=== PATIENT | male | born 1980 | race Hispanic/Latino ===

== ENCOUNTER 2018-04-21 09:27 | Inpatient (IN) | payer BC ==
[2018-04-21] VITALS (9 sets, daily range): BP systolic 102–131; BP diastolic 51–85
[~2018-04-21] VITALS: Ht 177.8 cm; Wt 98.9 kg
[2018-04-21 10:12] LABS: BASOPHILS % (AUTO) 0.8 % (0.0-5.0); EOSINOPHILS % (AUTO) 2.4 % (0.0-8.0); HEMATOCRIT 48.7 % (42-54); LYMPHOCYTES % (AUTO) 17.7 % (21.0-51.0); MEAN CORPUSCULAR HGB CONC 34.3 g/dL (32.0-36.0); MEAN CORPUSCULAR VOLUME 87.5 fL (79-99); MONOCYTES % (AUTO) 7.3 % (3.0-13.0); NEUTROPHILS % (AUTO) 71.8 % (40.0-77.0); PLATELET COUNT (AUTO) 233 K/uL (130-400); RED BLOOD CELL COUNT(AUTO) 5.57 MIL/uL (4.50-6.20); RED CELL DISTRIBUTION WIDTH 13.9 % (11.0-15.5); WHITE BLOOD COUNT (AUTO) 7.8 K/uL (4.8-10.8)
[2018-04-21 10:17] LABS: POTASSIUM 4.1 mmol/L (3.5-5.1)
[2018-04-21 10:18] LABS: INR 0.97 (0.85-1.15); PARTIAL THROMBOPLASTIN TIME 28.9 SEC (26.3-35.5); PROTHROMBIN TIME 10.2 SEC (9.6-11.6)
[2018-04-21 10:23] LABS: ALBUMIN 3.9 g/dL (3.5-5.0); BILIRUBIN,TOTAL 0.6 mg/dL (0.2-1.0); TOTAL PROTEIN, SERUM 7.7 g/dL (6.0-8.3)
[2018-04-21] MEDS ORDERED: SODIUM CHLORIDE 0.9% 1000ML 1,000 ML IV SCH ×2 (10:45→16:23)
[2018-04-21 11:32] LABS: TROPONIN I 3.25 ng/mL (0.00-0.06)
[2018-04-21] MEDS ORDERED: NITROGLYCERIN 1GM/1 INCH PACKET TD SCH (14:15)
[2018-04-21] MEDS ORDERED: LIDOCAINE HCL 2% 20ML ONE (14:37)
[2018-04-21] MEDS ORDERED: NITROGLYCERIN 5 MG/ML 10 ML VIAL IV ONE (14:37)
[2018-04-21] MEDS ORDERED: IOHEXOL-350 50ML VIAL IV ONE ×2 (14:37→15:47)
[2018-04-21] MEDS ORDERED: IOHEXOL 350 MG/ML 100ML INFUS..BTL IV ONE (14:37)
[2018-04-21] MEDS ORDERED: BIVALIRUDIN 250 MG/VIAL IV ONE (14:37)
[2018-04-21] MEDS ORDERED: MIDAZOLAM HCL 1 MG/ML 2ML VIAL ONE (15:35)
[2018-04-21] MEDS ORDERED: ATOR10 PO (16:44)
[2018-04-21] MEDS ORDERED: AEC81 PO (16:44)
[2018-04-21] MEDS ORDERED: PENI500T2 PO (16:44)
[2018-04-21] MEDS ORDERED: METO-391 PO (16:44)
[2018-04-21 17:39] LABS: TROPONIN I 2.76 ng/mL (0.00-0.06)
[2018-04-21] MEDS: PENICILLIN V POTASSIUM 500 MG TABLET PO SCH ×3 (17:41→19:37)
[2018-04-21] MEDS ORDERED: ATORVASTATIN CALCIUM 20 MG TABLET PO SCH (21:00)
[2018-04-21] MEDS ORDERED: METOPROLOL TARTRATE 25 MG TAB PO SCH ×2 (21:00)
[2018-04-21] MEDS ORDERED: ENOXAPARIN SODIUM 100 MG/1 ML SQ SCH ×2 (21:00)
[2018-04-21 23:44] LABS: TROPONIN I 1.73 ng/mL (0.00-0.06)
[2018-04-22 00:02] VITALS: BP 113/80
[2018-04-22 03:49] LABS: HEMATOCRIT 43.5 % (42-54); MEAN CORPUSCULAR HEMOGLOBIN 29.3 pg (27.0-33.0); MEAN CORPUSCULAR HGB CONC 33.9 g/dL (32.0-36.0); MEAN CORPUSCULAR VOLUME 86.6 fL (79-99); NUCLEATED RED BLOOD CELLS 0.1 % (0.0-0.19); PLATELET COUNT (AUTO) 217 K/uL (130-400); RED BLOOD CELL COUNT(AUTO) 5.03 MIL/uL (4.50-6.20); RED CELL DISTRIBUTION WIDTH 13.8 % (11.0-15.5); WHITE BLOOD COUNT (AUTO) 10.3 K/uL (4.8-10.8)
[2018-04-22 04:02] VITALS: BP 133/90
[2018-04-22 04:34] LABS: CREATININE 0.9 mg/dL (0.5-1.5); POTASSIUM 4.1 mmol/L (3.5-5.1); THYROID STIMULATING HORMONE 0.94 uIU/mL (0.36-3.74)
[2018-04-22 04:38] LABS: TROPONIN I 1.46 ng/mL (0.00-0.06)
[2018-04-22 04:52] LABS: T4 (THYROXINE) 7.6 mcg/dL (4.7-13.3)
[2018-04-22] MEDS ORDERED: SODIUM CHLORIDE 0.9% 500ML 500 ML IV SCH (05:00)
[2018-04-22 08:02] VITALS: BP 148/95
[2018-04-22] MEDS ORDERED: LISINOPRIL 10 MG TABLET PO SCH ×2 (09:00)
[2018-04-22] MEDS ORDERED: ASPIRIN 325MG EC TAB 325 MG TABLET.DR PO SCH ×2 (09:00)
[2018-04-22] MEDS ORDERED: ASPIRIN 81MG TAB.CHEW PO SCH (09:00)
[2018-04-22] MEDS ORDERED: METOPROLOL TARTRATE 50 MG TAB PO SCH (09:00)
[2018-04-22] MEDS: PENICILLIN V POTASSIUM 500 MG TABLET PO SCH ×2 (09:49→13:39)
[2018-04-22 11:38] VITALS: BP 127/80
== END 2018-04-22 15:45 | disposition home or self-care (01) | DRG 282 ==
LOC: EDH 09:27 → 2DH 09:28
PROVIDERS: ADMIT Family Medicine; ATTEND Family Medicine
PROC: 4A023N7 Measurement of Cardiac Sampling and Pressure, Left Heart, Percutaneous Approach (ICD-10-PCS; principal; 2018-04-21)
PROC: B2111ZZ Fluoroscopy of Multiple Coronary Arteries using Low Osmolar Contrast (ICD-10-PCS; 2018-04-21)
PROC: B2151ZZ Fluoroscopy of Left Heart using Low Osmolar Contrast (ICD-10-PCS; 2018-04-21)
PROC: B41F1ZZ Fluoroscopy of Right Lower Extremity Arteries using Low Osmolar Contrast (ICD-10-PCS; 2018-04-21)
DX: I21.4 Non-ST elevation (NSTEMI) myocardial infarction (principal); B34.9 Viral infection, unspecified; E78.5 Hyperlipidemia, unspecified; F41.9 Anxiety disorder, unspecified; G47.00 Insomnia, unspecified; Z82.49 Family history of ischemic heart disease and other diseases of the circulatory system
CPT/HCPCS: 36415; 80048; 80053; 80061; 82550; 83874; 84436; 84443; 84484; 85025; 85027; 85610; 85730; 93005; 93306; 93458; 99156; 99157; C1760; C1894; J0583; J1644; J2250; J3490; J7030; Q9967